=== PATIENT | female | born 1985 | race Caucasian/White ===

== ENCOUNTER 2017-02-18 23:48 | Emergency (ER) | payer SELFPAY ==
--- NOTE | 2017-03-12 04:53 | ER ---
ADMIT: 02/18/2017 RM/LOC: ER [facility] MR#: [id number] [id number] [place], [place] [address] [place] [address] Emergency Room Report SEX: F AGE: 31 : 1985 DATE: 02/18/2017 ADDENDUM: This patient comes to the ER because she might be . She has had abnormal vaginal discharge for a month and has symptoms of . Does have a history of having Gardnerella and she is nauseated. On physical exam, her pain is in the epigastric area. I did do a vaginal exam on her, and she does have odor that is consistent with bacterial vaginosis. DIAGNOSES: 1. Amenorrhea. 2. Bacterial vaginosis. I did write a prescription for Metrogel vaginal suppository. She was given Zofran in the ER. We will have her follow up with her primary as needed. Please see my T-sheet. BONNIE Holt / Aba Paz MD / carlos manuell JOB #: [id number] CC: Aba Paz MD, Attending Physician Brayna Lan MD, Family Physician
== END 2017-02-19 01:15 | disposition home or self-care (01) ==
LOC: ER 23:48
DX: N91.2 Amenorrhea, unspecified (principal); J45.909 Unspecified asthma, uncomplicated; F17.210 Nicotine dependence, cigarettes, uncomplicated; Z98.890 Other specified postprocedural states; Z90.89 Acquired absence of other organs

== ENCOUNTER 2017-02-20 18:26 | Emergency (ER) | payer SELFPAY ==
--- NOTE | 2017-02-25 08:46 | ER ---
ADMIT: 02/20/2017 RM/LOC: ER [facility] MR#: [id number] [address] [address] LOREN ASHBY [address] [place] [id number] Emergency Room Report SEX: F AGE: 31 : 1985 DATE: 02/20/2017 A 31-year-old female, comes with vaginal bleeding, maybe her period. She is also complaining of pain in the left pelvis. Ultrasound revealed normal uterus, normal right ovary, could not visualize the left ovary secondary to bowel gas. The patient is discharged with diagnosis of vaginal bleeding likely with her period. She is instructed to follow up with [facility] yet this week. Colin Scherer MD/ david JOB #: [id number] CC: Ryley Webster MD, Attending Physician Brayan Lan MD, Family Physician
== END 2017-02-20 20:50 | disposition home or self-care (01) ==
LOC: ER 18:26
DX: N93.9 Abnormal uterine and vaginal bleeding, unspecified (principal); J45.909 Unspecified asthma, uncomplicated; F17.210 Nicotine dependence, cigarettes, uncomplicated; Z90.89 Acquired absence of other organs; Z98.890 Other specified postprocedural states